=== PATIENT | female | born 1975 | race Caucasian/White ===

== ENCOUNTER 2018-10-05 11:59 | Emergency (ER) | payer OTHER ==
[~2018-10-05] VITALS: Ht 167.6 cm; Wt 62.6 kg
--- NOTE | 2018-10-05 12:29 | NUR ---
ED Nurse Note: Patient walked in c/o teeth pain x 10 days after having 16 total upper and lower teeth pulled by dentist. Pt wants a refill on her Percocet 10mg. Pt rates her pain at 10/10.
[2018-10-05 12:31] VITALS: BP 111/65
[2018-10-05] MEDS ORDERED: NORCO 5-325 TA1 EACH ORAL (12:44)
--- NOTE | 2018-10-05 12:44 | Emergency Room Report ---
History of Present Illness General Chief Complaint: Toothache Source: Patient Present Illness HPI 43-year-old female patient presents the ER complaining of dental pain. Patient reports that 10 days ago she had 16 teeth removed by her dentist in preparation for her denture placement. States that she also is going to have a root canal. States she has follow-up appointment scheduled on 11 October 2018 when the dentist office reopens, states they are currently closed for the holiday. Patient reports that she was given Percocet 10 from the dentist office, states that that medication ran out, states she has also been taking ibuprofen during that time. Patient denies fever, chest pain, shortness of breath, abdominal pain. Allergies: Coded Allergies: PENICILLINS (Verified Allergy, Unknown, 10/05/18) Patient History Past Medical History: see triage record Last Menstrual Period: 2007 Now: No : 6 Para: 6 Reviewed Nursing Documentation: PMH: Agreed; PSxH: Agreed Nursing Documentation-PMH Hx Cardiac Problems: No Hx Gastrointestinal Problems: Yes - cholecystectomy 2007, hysterectomy 2007 Review of Systems All Other Systems: negative except mentioned in HPI Physical Exam Vital Signs Date Time Temp Pulse Resp B/P (MAP) Pulse Ox O2 Delivery O2 Flow Rate FiO2 10/05/18 12:20 98.4 77 18 111/65 95 Room Air Sp02 EP Interpretation: reviewed, normal General Appearance: well appearing, no apparent distress, alert, GCS 15, non- toxic Head: normocephalic, atraumatic Eyes: bilateral eye normal inspection, bilateral eye PERRL ENT: hearing grossly normal, normal pharynx, no angioedema, normal voice, TMs + canals normal, uvula midline, moist mucus membranes, other - no teeth in oropharynx, no erythema or edema Neck: full range of motion Respiratory: lungs clear, normal breath sounds, no rhonchi, no respiratory distress, no accessory muscle use, no wheezing, speaking full sentences Cardiovascular #1: regular rate, rhythm, no edema Neurologic: alert, oriented x3, responsive, motor strength/tone normal, sensory intact Psychiatric: mood/affect normal Skin: no rash Medical Decision Making PA Attestation Dr. Vaughan is my supervising Physician whom patient management has been discussed with. Diagnostic Impression: Primary Impression: Pain, dental ER Course Pt. presents to the ED c/o dental pain. Ddx considered but are not limited to cellulitis, abscess, dental caries, gingivitis, opioid dependence. Does not require imaging at this time. Vital signs: are WNL, pt. is afebrile ED INTERVENTIONS: Toradol pain medication provided in the ER. Will not provide refill or Percocet 10. ER does not refill pain medication prescriptions. No teeth noted in oropharynx. Nontoxic appearing, speaking full sentences, no active draining, mild edema, no trismus or vision changes. No signs of abscess, no fluctuance, erythema or edema. follow-up with dentist at scheduled appointment. Will provide abx for infection to cover for possible infection. provided with contact information for dentists. F/u with PCP and dentist for further treatment. Will not provide opioid medication in ER due to patient getting home by bus, will provide patient with [place] prescription at discharge. CURES reviewed. DISCHARGE: -Rx provided for [place] At this time pt. is stable for d/c to home. Patient is resting comfortably, in no acute distress, nontoxic appearing, talking and smiling without difficulty. Will provide printed patient care instructions and any necessary prescriptions. Care plan and follow up instructions have been discussed with the patient prior to discharge. Patient instructed to follow-up with primary care provider in 2 - 3 days. Followup with dentist. Patient questions asked and answered. Patient reports understanding and agreement to treatment plan. ER precautions given. Patient instructed to return to ER immediately for any new or worsening of symptoms including but not limited to fever, worsening of pain symptoms, worsening of erythema, red streaking. - Please note that this Emergency Department Report was dictated using [employer] technology software, occasionally this can lead to erroneous entry secondary to interpretation by the dictation equipment. Last Vital Signs Date Time Temp Pulse Resp B/P (MAP) Pulse Ox O2 Delivery O2 Flow Rate FiO2 10/05/18 12:31 98.4 18 111/65 95 Room Air 10/05/18 12:20 77 Status: improved Disposition: HOME, SELF-CARE Condition: Stable Scripts Hydrocodone Bit/Acetaminophen 5-325* (NORCO 5-325*) 1 Each Tablet 1 TAB ORAL Q8HR PRN for For Pain, #8 TAB 0 Refills Prov: Luisito Tsai 10/05/18 Patient Instructions: Dental Pain Additional Instructions: Followup with primary care provider in 3 -5 days for pain medication and referral as needed. Followup with dentist at scheduled appointment. Take medications as directed. Continue to take Motrin for pain and inflammation. Patient questions asked and answered. ER precautions given, patient instructed to return to ER immediately for any new or worsening of symptoms. Luisito Tsai Oct 05, 2018 12:44
[2018-10-05] MEDS ORDERED: Ketorolac 30mg Inj IM ONE (12:45)
--- NOTE | 2018-10-05 12:50 | NUR ---
ED Nurse Note: pt dc per ED order, dc and prescription education provided. pt verbalized underestanding, id band removed, vss, pt left with all belongings, pt instructed to follow with pmd if symptoms reoccur
[2018-10-05 12:51] VITALS: BP 111/65
== END 2018-10-05 12:51 | disposition home or self-care (01) ==
LOC: EMR 12:42
DX: K08.89 Other specified disorders of teeth and supporting structures (principal); Z88.0 Allergy status to penicillin; Z90.49 Acquired absence of other specified parts of digestive tract; Z90.710 Acquired absence of both cervix and uterus
CPT/HCPCS: 96372; 99283; J1885

== ENCOUNTER 2019-01-12 01:11 | Emergency (ER) | payer OTHER ==
[~2019-01-12] VITALS: Ht 170.2 cm; Wt 59.9 kg
[~2019-01-12 01:11] MED LIST: NORCO 5-325 TA1 EACH ORAL
[2019-01-12] MEDS ORDERED: NKM (01:24)
[2019-01-12 01:45] VITALS: BP 123/61
[2019-01-12] MEDS ORDERED: IBUPROFEN600 MG ORAL (02:25)
[2019-01-12 02:34] VITALS: BP 123/61
--- NOTE | 2019-01-12 03:48 | Emergency Room Report ---
History of Present Illness General Chief Complaint: Back Injury Source: Patient Present Illness HPI Patient presents reports that last week on Saturday she was taking a shower and slipped and fell backwards has pain in the lower back region Denies any difficulty ambulating denies any chest pain or shortness of breath denies any lapse of consciousness Pain is 6 out of 10 worse with walking better with rest denies any loss of control of bowel or urination denies any change in sensation Allergies: Coded Allergies: PENICILLINS (Verified Allergy, Unknown, 10/05/18) Patient History Past Medical History: see triage record Pertinent Family History: none Last Menstrual Period: 2007 Now: No Reviewed Nursing Documentation: PMH: Agreed; PSxH: Agreed Nursing Documentation-PMH Past Medical History: No History, Except For Hx Cardiac Problems: No Hx Gastrointestinal Problems: Yes - cholecystectomy 2007, hysterectomy 2007 Review of Systems All Other Systems: negative except mentioned in HPI Physical Exam Vital Signs Date Time Temp Pulse Resp B/P (MAP) Pulse Ox O2 Delivery O2 Flow Rate FiO2 01/12/19 01:20 98.2 85 16 123/61 96 Room Air Sp02 EP Interpretation: reviewed, normal General Appearance: well appearing, no apparent distress Head: normocephalic, atraumatic Eyes: bilateral eye PERRL, bilateral eye EOMI ENT: hearing grossly normal, normal pharynx, TMs + canals normal, uvula midline Neck: full range of motion, supple, no meningismus, no bony tend Respiratory: lungs clear, normal breath sounds, no rhonchi, no respiratory distress, no retraction, no accessory muscle use Cardiovascular #1: normal peripheral pulses, regular rate, rhythm, no edema, no gallop, no JVD, no murmur Gastrointestinal: normal bowel sounds, non tender, soft, no mass, no organomegaly, non-distended, no guarding, no hernia, no pulsatile mass, no rebound Genitourinary: no CVA tenderness Musculoskeletal: other - Some discomfort palpable around the L4-L5 region mid sacral Neurologic: oriented x3, responsive, personal protection specialist III-XII nml as tested, motor strength/ tone normal, sensory intact Psychiatric: mood/affect normal Skin: normal color, no rash, warm/dry, palpation normal Lymphatic: normal inspection, no adenopathy Medical Decision Making Diagnostic Impression: Primary Impression: Injury of back Additional Impression: CONTUSION ER Course Given the patient's history and presentation imaging studies were obtained No obvious acute pathology is seen Patient is able to bear weight and is ambulatory and is stable for initial conservative outpatient follow-up Other X-Ray Diagnostic Results Other X-Ray Diagnostic Results : X-Ray ordered: Pelvic # of Views/Limited Vs Complete: 1 View Indication: Pain EP Interpretation: Yes Interpretation: no dislocation, no soft tissue swelling, no fractures Impression: No acute disease Electronically Signed by: Gina Ruby DO Last Vital Signs Date Time Temp Pulse Resp B/P (MAP) Pulse Ox O2 Delivery O2 Flow Rate FiO2 01/12/19 02:34 98.2 83 17 123/61 96 Room Air Status: improved Disposition: HOME, SELF-CARE Condition: Improved Scripts Ibuprofen* (MOTRIN*) 600 Mg Tablet 600 MG ORAL Q8H PRN for For Pain, #20 TAB 0 Refills Prov: Gina Ruby DO 01/12/19 Referrals: BRITTANY CHRISTY,REFERRING (PCP) Patient Instructions: Contusion, [id number], Back Pain, Adult Additional Instructions: Patient is provided with the discharge instructions notified to follow up with primary doctor in the next 2-3 days otherwise return to the er with any worsening symptoms. Please note that this report is being documented using [employer] technology. This can lead to erroneous entry secondary to incorrect interpretation by the dictating instrument. Gina Ruby DO Jan 12, 2019 03:48
--- NOTE | 2019-01-12 13:16 | Diagnostic Imaging Report ---
Indication: Pelvic pain after falling in bathtub 2 days ago Technique: One view of the pelvis Comparison: none Findings: No acute fractures. No dislocations. The joint spaces are preserved. There are degenerative changes of the pubic symphysis Impression: No acute process
== END 2019-01-12 02:34 | disposition home or self-care (01) ==
LOC: EMR 01:51
DX: S39.92XA Unspecified injury of lower back, initial encounter (principal); W18.2XXA Fall in (into) shower or empty bathtub, initial encounter; Y92.9 Unspecified place or not applicable; Z88.0 Allergy status to penicillin; Z90.49 Acquired absence of other specified parts of digestive tract; Z90.710 Acquired absence of both cervix and uterus
CPT/HCPCS: 72170; 99283

== ENCOUNTER 2019-06-18 11:39 | Emergency (ER) | payer OTHER ==
[~2019-06-18] VITALS: Ht 167.6 cm; Wt 65.8 kg
[~2019-06-18 11:39] MED LIST changes: +IBUPROFEN600 MG ORAL; +NKM
[2019-06-18 11:59] VITALS: BP 119/74
--- NOTE | 2019-06-18 11:59 | NUR ---
ED Nurse Note: Patient walked in to ER from home due to Rt side of face swelling. Patient is alert and oriented x4 and ambulatory. Skin clean and intact. Calm and cooperative. No acute distress noted at this moment. Addendum: 06/18/19 at 1234 by [email or web address] ED Nurse Note: Patient walked in to ER from home due to lower back pain 07/16. Patient is alert and oriented x4 and ambulatory. Skin clean and intact. Calm and cooperative. No acute distress noted at this moment.
--- NOTE | 2019-06-18 12:20 | Emergency Room Report ---
History of Present Illness General Chief Complaint: Pain Present Illness HPI 43-year-old female with history of migraine headache and chronic low back pain currently moved here from [place] here complaining of worsening migraine headache times few days as well as low back pain. Patient has been taking ibuprofen and Tylenol with minimal relief. Patient reports that back in [place] she used to take fentanyl for migraine headache. Patient has not yet established a primary care and [facility]. Complains of nausea however denies any vomiting. Denies dizziness and vertigo. Reports she has not recently seen a neurologist. Denies syncope. Denies chest pain, shortness of breath, palpitation, abdominal pain. Denies urinary frequency, saddle paresthesia, tingling and numbness urinary and bowel incontinence. Patient is rating her pain 5 out of 10 and lower back pain migraine headache 10 out of 10. Patient is in mild distress. Cures showed no recent narcotic use. Patient denies any recent head injury or fall. Denies drug use or alcohol intake. Denies photophobia, aura, blurry vision . Patient reports that her migraine headache is localized to the left side of her head. Denies recent URI symptoms. Patient had a hysterectomy in 2007. Allergies: Coded Allergies: PENICILLINS (Verified Allergy, Unknown, 10/05/18) Patient History Past Medical History: see triage record Past Surgical History: hysterectomy - 2007 Pertinent Family History: none Now: No Immunizations: UTD Reviewed Nursing Documentation: PMH: Agreed; PSxH: Agreed Nursing Documentation-PMH Hx Cardiac Problems: No Hx Gastrointestinal Problems: Yes - cholecystectomy 2007, hysterectomy 2007 Review of Systems All Other Systems: negative except mentioned in HPI Physical Exam Vital Signs Date Time Temp Pulse Resp B/P (MAP) Pulse Ox O2 Delivery O2 Flow Rate FiO2 06/18/19 11:56 98.4 87 16 119/74 (89) 94 Room Air Sp02 EP Interpretation: reviewed, normal General Appearance: alert, GCS 15, non-toxic, mild distress Head: normocephalic, atraumatic Eyes: bilateral eye normal inspection, bilateral eye PERRL ENT: hearing grossly normal, normal pharynx, no angioedema, normal voice Neck: full range of motion, supple/symm/no masses Respiratory: chest non-tender, lungs clear, normal breath sounds, no rhonchi, speaking full sentences Cardiovascular #1: regular rate, rhythm, no edema, no murmur Gastrointestinal: normal bowel sounds, non tender, soft, non-distended, no guarding, no rebound Rectal: deferred Musculoskeletal: back normal, gait/station normal, normal range of motion, non- tender Neurologic: alert, oriented x3, responsive, motor strength/tone normal, sensory intact, speech normal Psychiatric: judgement/insight normal, memory normal, mood/affect normal, no suicidal/homicidal ideation Skin: no rash Lymphatic: no adenopathy Medical Decision Making PA Attestation All diagnoses and treatment plans were reviewed and discussed with my supervising physician Dr. Caruso Diagnostic Impression: Primary Impression: Migraine headache Additional Impression: Chronic back pain ER Course 43-year-old female with history of migraine headache and chronic low back pain currently moved here from [place] here complaining of worsening migraine headache times few days as well as low back pain. Patient has been taking ibuprofen and Tylenol with minimal relief. Patient reports that back in [place] she used to take fentanyl for migraine headache. Patient has not yet established a primary care and [facility]. Complains of nausea however denies any vomiting. Denies dizziness and vertigo. Reports she has not recently seen a neurologist. Denies syncope. Denies chest pain, shortness of breath, palpitation, abdominal pain. Denies urinary frequency, saddle paresthesia, tingling and numbness urinary and bowel incontinence. Patient is rating her pain 5 out of 10 and lower back pain migraine headache 10 out of 10. Patient is in mild distress. Cures showed no recent narcotic use. Patient denies any recent head injury or fall. Denies drug use or alcohol intake. Denies photophobia, aura, blurry vision . Patient reports that her migraine headache is localized to the left side of her head. Denies recent URI symptoms. Patient had a hysterectomy in 2007. Ddx considered but are not limited to: Migraine headache with aura, migraine headache without aura, tension headache, chronic back pain Vital signs: are WNL, pt. is afebrile H&PE are most consistent with: Headache without aura, chronic low back pain ORDERS: Sumatriptan, Zofran, lidocaine patch ER intervention: none DISCHARGE: At this time pt. is stable for d/c to home. Will provide printed patient care instructions, and any necessary prescriptions. Care plan and follow up instructions have been discussed with the patient prior to discharge. I advised the patient to follow-up with a primary care provider for referral to neurologist avoid taking narcotics as it will worsen her migraine headache. She agrees with the course of treatment. Last Vital Signs Date Time Temp Pulse Resp B/P (MAP) Pulse Ox O2 Delivery O2 Flow Rate FiO2 06/18/19 11:56 98.4 87 16 119/74 (89) 94 Room Air Disposition: HOME, SELF-CARE Condition: Stable Scripts Sumatriptan Succinate* (IMITREX*) 50 Mg Tablet 50 MG ORAL DAILY PRN MIGRAINE, #10 TAB Prov: Zoey Prescott 06/18/19 Lidocaine Patch* (Lidoderm Patch*) 1 Each Adh..patch 1 PATCH TOPIC DAILY, #30 PATCH Patch(es) may remain in place for up to 12 hours in any 24-hour period. Prov: Zoey Prescott 06/18/19 Ondansetron (Zofran) 4 Mg Tablet 4 MG ORAL Q6H PRN for Nausea & Vomiting, #12 TAB Prov: Zoey Prescott 06/18/19 Referrals: NOT CHOSEN [facility]/,REFERRING (PCP) Patient Instructions: Chronic Back Pain, Migraine Headache Additional Instructions: Take medication as directed follow-up with your primary care provider worsening symptoms return to the emergency room Zoey Prescott Jun 18, 2019 12:20
[2019-06-18] MEDS ORDERED: ZOFRAN4 M1 ORAL (12:21)
[2019-06-18] MEDS ORDERED: LIDODERM700 M1 TOPIC (12:21)
[2019-06-18] MEDS ORDERED: IMITREX50 MG ORAL (12:21)
[2019-06-18 12:40] VITALS: BP 126/76
--- NOTE | 2019-06-18 12:40 | NUR ---
ED Nurse Note: Pt cleared by health care Provider for discharge. DC instructions/prescription was given and explained to pt and verbalized understanding of teachings. All medical deviecs such as ID band removed. Pt is AAO x4, ambulatory and left with all personal belongings.
== END 2019-06-18 12:41 | disposition home or self-care (01) ==
LOC: EMR 12:16
DX: G43.909 Migraine, unspecified, not intractable, without status migrainosus (principal); G89.29 Other chronic pain; M54.9 Dorsalgia, unspecified; Z90.49 Acquired absence of other specified parts of digestive tract; Z90.710 Acquired absence of both cervix and uterus; Z88.0 Allergy status to penicillin
CPT/HCPCS: 99282